=== PATIENT | female | born 1940 | race African-American/Black ===

== ENCOUNTER 2016-07-29 09:13 | Outpatient (CLI) | payer MEDICARE, MEDICAID ==
[2016-07-29 10:06] LABS: Hemoglobin A1c 6.7 % (4.0-6.0)
[2016-07-29 10:08] LABS: ALT (SGPT) 17 U/L (0-55); AST (SGOT) 14 U/L (5-34); Alkaline Phosphatase 78 U/L (40-150); Anion Gap 15 mmol/L (10-20); BUN (Urea Nitrogen) 16 mg/dL (9.8-20.1); Bilirubin, Total 0.4 mg/dL (0.2-1.2); Calc. Creatinine Clearance 0 mL/min (70-130); Calcium 9.9 mg/dL (7.8-10.44); Carbon Dioxide 26 mmol/L (23-31); Chloride 103 mmol/L (98-107); Estimated GFR-MDRD 35; Globulin 3.1 g/dL (2.4-3.5); Protein, Total 7.2 g/dL (5.8-8.1)
[2016-07-29 18:18] LABS: Follicle Stimulating Hormone 2.26 mIU/mL (See Ranges)
== END 2016-07-29 09:14 | disposition home or self-care (01) ==
LOC: NAV LAB 09:13
PROVIDERS: ATTEND Internal Medicine Endocrinology, Diabetes & Metabolism
DX: E11.65 Type 2 diabetes mellitus with hyperglycemia (principal); E03.9 Hypothyroidism, unspecified; E27.40 Unspecified adrenocortical insufficiency
CPT/HCPCS: 36415; 80053; 82024; 83001; 83036; 84439; 84443

== ENCOUNTER 2020-04-15 16:40 | Outpatient (CLI) | payer MEDICARE, MEDICAID ==
--- NOTE | 2020-04-15 18:06 | RAD ---
Lumbar spine 3 views HISTORY: Low back pain. FINDINGS: There are 5 lumbar type vertebrae. Pedicles are intact. Vertebral body heights and alignmen t are maintained. Osteophytosis of the lower facets. 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 No acute fracture or dislocation. Prominent calcification over the arterial structures. IMPRESSION : Mild degenerative changes lower lumbar spine. No evidence of compression fracture. Atherosclerosis.
== END 2020-04-15 16:41 | disposition home or self-care (01) ==
LOC: NAV RAD 16:40
PROVIDERS: ATTEND Family Medicine
DX: M54.5 Low back pain (principal); M47.816 Spondylosis without myelopathy or radiculopathy, lumbar region; I70.90 Unspecified atherosclerosis
CPT/HCPCS: 72100

== ENCOUNTER 2021-04-15 09:59 | Outpatient (CLI) | payer MEDICARE, OTHER | END 2021-04-15 10:00 | disposition home or self-care (01) | LOC: NAV RAD 09:59 | PROVIDERS: ATTEND Family Medicine | DX: R10.13 Epigastric pain (principal) | CPT/HCPCS: 74018 ==

== ENCOUNTER 2021-11-09 14:21 | Outpatient (CLI) | payer MEDICARE, OTHER | END 2021-11-09 14:22 | disposition home or self-care (01) | LOC: NAV RAD 14:21 | PROVIDERS: ATTEND Nurse Practitioner Family | DX: M79.675 Pain in left toe(s) (principal); M85.872 Other specified disorders of bone density and structure, left ankle and foot ==

== ENCOUNTER 2024-03-07 10:07 | Outpatient (CLI) | payer OTHER | END 2024-03-07 10:08 | disposition home or self-care (01) | LOC: NAV RAD 10:07 | PROVIDERS: ATTEND Student in an Organized Health Care Education/Training Program | DX: R05.3 Chronic cough (principal) | CPT/HCPCS: 71046 ==